=== PATIENT | female | born 1985 | race Caucasian/White ===

== ENCOUNTER 2017-09-09 16:17 | Emergency (ER) | payer SELFPAY ==
[~2017-09-09] VITALS: Ht 172.7 cm; Wt 120.0 kg
[~2017-09-09 16:17] MED LIST: LORT7.5T3 PO; PHEN12.5 PO; Z.0.NO CURRENT MEDS
[2017-09-09 16:19] VITALS: BP 145/72; PULSE 75; RESP 14; TEMP 98.2; O2SAT 100
[2017-09-09 17:49] LABS: AMORPHOUS SEDIMENT, URINE RARE; BACTERIA, URINE OCC /hpf; BILIRUBIN, URINE NEG (NEG); BLOOD, URINE LARGE (NEG); GLUCOSE,URINE NEG (NEG); KETONE, URINE NEG (NEG); NITRITE,URINE NEG (NEG); PH, URINE 6.5 (5.0-8.5); SQUAMOUS EPITHELIAL CELL URINE 3 /hpf (0-5); URINE COLOR LIGHT-RED (YELLW/STRAW); URINE LEUKOCYTE ESTERASE SMALL (NEG)
== END 2017-09-09 18:30 | disposition left against medical advice (07) ==
LOC: NED 16:17
DX: R39.9 Unspecified symptoms and signs involving the genitourinary system (principal)
CPT/HCPCS: 81001; 84703